=== PATIENT | female | born 1995 | race Caucasian/White ===

== ENCOUNTER 2018-09-04 14:18 | Emergency (ER) | payer OTHER ==
[~2018-09-04] VITALS: Ht 170.2 cm; Wt 64.0 kg
[2018-09-04] MEDS ORDERED: DIPHENHYDRAMINE 50 MG/ML, 1ML ONE (14:47)
[2018-09-04] MEDS ORDERED: KETOROLAC 30 MG/1 ML ONE (14:47)
[2018-09-04] MEDS ORDERED: PROMETHAZINE 25 MG/ML, 1ML ONE (14:47)
[2018-09-04] MEDS ORDERED: PROMETHAZINE 25 MG/ML, 1ML IM ONE ×2 (15:00)
[2018-09-04] MEDS ORDERED: DIPHENHYDRAMINE 50 MG/ML, 1ML IVPush ONE (15:00)
[2018-09-04] MEDS ORDERED: PLEASE ENTER ALLERGIES MC SCH (15:00)
[2018-09-04] MEDS ORDERED: SODIUM CHLORIDE FLUSH 10ML SYR IVF ONE (15:00)
[2018-09-04] MEDS ORDERED: SODIUM CHLORIDE 0.9% 1,000ML IVBOLUS ONE (15:00)
[2018-09-04] MEDS ORDERED: KETOROLAC 30 MG/1 ML IVPush ONE (15:00)
[2018-09-04 16:01] VITALS: BP 117/53
== END 2018-09-04 16:42 | disposition home or self-care (01) ==
LOC: ED 16:30
DX: G43.919 Migraine, unspecified, intractable, without status migrainosus (principal)
CPT/HCPCS: 96372; 96374; 96375; 99284; J1200; J1885; J2550